=== PATIENT | male | born 1975 | race Caucasian/White ===

== ENCOUNTER 2016-12-22 14:14 | Observation (INO) | payer MEDICARE, MEDICAID ==
[~2016-12-22] VITALS: Ht 175.3 cm; Wt 101.3 kg
[~2016-12-22 14:14] MED LIST: ASPI-628 PO; CHOL200020 PO; LIP40 PO; LISI10TA2 PO; NAM10 PO; PHOS1POW MC; [UNRECOGNIZED DRUG - OTHER] PO
[2016-12-22 14:25] VITALS: BP 163/81; PULSE 90; RESP 18; O2SAT 97
--- NOTE | 2016-12-22 15:08 | ED.REPORT ---
HPI-Neurologic Deficit Date of Service Dec 22, 2016 ED Provider: Dr. Patel Pt is a 41 year old male with a hx of a right sided stroke 2014 presenting to the ED complaining of right sided numbness onset yesterday around 1700. Denies any focal weakness, although he reports that he did have weakness yesterday when the numbness began. Denies headache, slurred speech, being unable to speak , fever, chills, nausea, vomiting, SOB or wheezing. He has residual left sided weakness, left sided vision disturbances, slurred speech, and a left sided facial droop after the stroke. Pt takes Aspirin daily. Nursing Notes Stated Complaint: NUMBNESS ON WHOLE RT SIDE Chief Complaint: Neuro Symptoms/ Deficits Nursing Notes Reviewed: Yes Allergies: Coded Allergies: No Known Allergies (Verified Allergy, Unknown, 11/04/14) Scheduled Ascorbic Acid (Vitamin C) 250 Mg Tab.chew 1,000 MG PO QAM Aspirin Chew (Aspirin Chew) 81 Mg Chew 81 MG PO QAM Atorvastatin (Lipitor) 40 Mg Tablet 40 MG PO HS Cholecalciferol (Vitamin D3) (Vitamin D3) 2,000 Unit Tablet 2,000 UNIT PO QAM Citalopram (Citalopram) 40 Mg Tablet 40 MG PO QAM Cyanocobalamin (Vitamin B12) 500 Mcg Tablet 1,000 MCG PO QAM Docosahexanoic Acid (Dha) 100 Mg Capsule 100 MG PO QAM Lisinopril (Lisinopril) 10 Mg Tablet 10 MG PO HS Multivit with Calcium,Iron,Min (Multivitamins G-Vpshzin-Vmxg) 1 Each Tablet 1 EACH PO QAM General Time Seen by Provider: 15:08 Chief Complaint Numbness arm... (Right), Numbness leg... (Right) Hx Obtained From: Patient Arrived By: Walk-in Sudden in Onset?: Yes Onset Occurred: Yesterday Symptom Duration: Since onset Progression Since Onset: Gradually improving Severity: Current: No pain currently Severity: Maximum: No pain Recent Healthcare: No recent doctor visit, No recent hospitalization Similar Sx Previous: No Past Medical History Past Medical History Notes: PCP: Dr. Puckett Past Medical History Stroke x2. His mother reports there was bleeding in his brain stem the first time and the tamara area the second time. He has residual left-sided weakness and sensation/coordination loss in right hand. Hypertension Past Surgical History Tracheotomy Feeding tube Family History Noncontributory Smoking History Unknown if Ever Smoker Social History Lives with mother. Drug Use: Denies drug use Other Social History: Local resident Ambulatory Status Walker Review of Systems Constitutional: Denies: Chills, Fever Respiratory: Denies: Shortness of breath, Wheezing GI: Denies: Nausea, Vomiting Neurologic: Reports: Numbness, Denies: Focal weakness, Headache, Slurred speech, Unable to speak Complete sys rev & neg: except as marked. Physical Exam Initial Vital Signs Vital Signs (First) Date Time Temp Pulse Resp B/P Pulse Ox O2 Delivery O2 Flow Rate FiO2 12/22/16 14:25 36.2 90 18 163/81 97 12/22/16 16:15 Room Air Initial VS: Reviewed ENT: Mucous membranes moist, Conjunctiva normal, No scleral icterus Abdomen / GI: Soft, Non-tender, No guarding, No rebound, No distention Extremities: Vascular intact, Neuro intact, No swelling, No tenderness Skin: Warm, Dry, No cyanosis Psychiatric: Mood/affect normal, Behavior normal, Normal thought content General/Constitutional: Awake, Alert, No acute distress Head / Eyes: Atraumatic Respiratory / Chest: Atraumatic, Breath sounds NL, Breath sounds = bilat, No respiratory distress Cardiovascular: Heart rate NL, Regular rhythm, Heart sounds NL, No gallop, No murmurs, No rubs Neurologic: Oriented X3, Speech NL, No motor deficits, No sensory deficits, CN II - XII intact, Reflexes equal bilat, Cerebellar NL Pt has intact sensation and strength of all extremities. Clumsy past with right finger to nose. Left lateral rectus palsy. Interpretation & Diagnostics CT ANGIO HEAD AND NECK: IMPRESSION: 1. 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 Flow is seen within the remainder of the more proximal right vertebral artery up to the level of the skull base; however, the amount of flow is diminutive, which does raise the suspicion for chronic dissection. 2. Atherosclerotic changes involving the cavernous portions of the bilateral internal carotid arteries is more than expected for the patient's age. Otherwise, the vessels within the anterior circulation are patent and within normal limits. No occlusions, aneurysms, or high-grade narrowing is evident involving the anterior circulation vessels. 3. No significant atherosclerotic changes involving the cervical portions of the carotid arteries. 4. Encephalomalacia involving the posterior fossa and anterior right frontal lobe is similar to previous exams. There is no acute intracranial hemorrhage or enhancing lesion. Dictated by: Ag Martinez M.D. on 12/22/2016 at 16:01 MRI BRAIN NO CONTRAST: IMPRESSION: Overall, no interval change since 11/04/14 with multifocal encephalomalacia as above. No acute ischemia Dictated by: Adiel Christie M.D. on 12/22/2016 at 19:13 Lab Results Interpretation Result Diagram: 12/22/16 1530 12/22/16 1530 Test 12/22/16 15:30 12/22/16 17:50 12/22/16 20:23 White Blood Count 11.9th/mm3 (3.8-10.1) Red Blood Count 4.60mil/mm3 (4.40-5.80) Hemoglobin 14.7g/dL (13.8-17.2) Hematocrit 42.1% (41.0-50.0) Mean Corpuscular Volume 91.5fL (81-100) Mean Corpuscular Hemoglobin 32.0pg (27.0-35.0) Mean Corpuscular Hemoglobin Concent 34.9% (32.0-37.0) Red Cell Distribution Width 12.8% (12.3-15.4) Platelet Count 222bil/L (150-400) Neutrophils (%) (Auto) 68.1% (40-74) Lymphocytes (%) (Auto) 16.9% (14-46) Monocytes (%) (Auto) 11.0% (4-12) Eosinophils (%) (Auto) 3.5% (0-5) Basophils (%) (Auto) 0.1% (0-3) Sodium Level 138mEq/L (134-144) Potassium Level 4.4mEq/L (3.5-5.2) Chloride Level 101mEq/L (97-108) Carbon Dioxide Level 23mmol/L (18-29) Blood Urea Nitrogen 15mg/dL (6-24) Creatinine 0.65mg/dL (0.76-1.27) Estimat Glomerular Filtration Rate 143mL/min (>59) Glucose Level 89mg/dL (60-99) Calcium Level 9.1mg/dL (8.5-10.1) Total Bilirubin 0.4mg/dL (0.0-1.2) Aspartate Amino Transf (AST/SGOT) 21U/L (0-50) Alanine Aminotransferase (ALT/SGPT) 16U/L (0-44) Alkaline Phosphatase 76U/L (25-150) Troponin T < 0.010ug/L (0.0-0.011) Total Protein 7.1g/dL (6.4-8.4) Albumin 4.1g/dL (3.4-5.0) Hold Urine Received (Received) Triglycerides Level 208mg/dL (0-149) Cholesterol Level 140mg/dL (100-199) LDL Cholesterol, Calculated 63.400mg/dL (0-99) VLDL Cholesterol 41.600mg/dL HDL Cholesterol 35mg/dL (>39) Cholesterol/HDL Ratio 4.00 (0.0-4.4) ECG Interpretation Time: 15:34 Normal ECG Interpretation: Normal ECG w/ rate of... (78), Normal rate, Normal sinus rhythm CT Head Interpretation IMPRESSION: 1. No acute intracranial abnormality. No intracranial hemorrhage. 2. Chronic right frontal, pontine, and cerebellar infarcts are unchanged. Dictated by: Romy Hill M.D. on 12/22/2016 at 15:38 Study: Head CT no contrast Interpretation / Wet Read by: Interpret - Radiologist Re-Eval/Medical Decision Re-Evaluation/Progress : Time of Eval: 19:55 Patient Status: Condition improved Re-Evaluation/Progress Note: Discussed consultation with Dr. Ty and MRI results. Discussed plan for admission. Pt understands and agrees. Consultation #1: Referral / Consult Name: Annie Schafer MD Consulted With: Neurology Call Returned at: 17:29 Note: Call [facility]. Consultation #2: Consulted With: Neurology Call Returned at: 17:38 Note: Dr. Ty at [facility]. Recommends getting an MRI and admitting the pt. Consultation #3: Consulted With: Neurology Note: Dr. Ty at [facility]. Get a neck MRI and treat with aspirin. If sx progress, consider anticoagulants. Consultation #4: Referral / Consult Name: Gabe Topete MD Consulted With: Hospitalist Call Returned at: 20:15 Forestry Technician: Will see patient, Agrees with plan, Accepts admit Counseled Regarding: Diagnosis, Lab results, Need for admission Discharge & Departure Impression: Primary Impression: TIA (transient ischemic attack) Transient cerebral ischemia type: unspecified Qualified Code: G45.9 - Transient cerebral ischemic attack, unspecified Disposition: ADMITTED TO HOSPITAL Discharge Condition All VS Reviewed: Yes Condition: Improved Referrals: Elizabeth Arevalo MD (PCP) Scribe Attestation Portions of this note were transcribed by Colleen Hernandez. I, Dr. Patel personally performed the history, physical exam and medical decision-making; I reviewed and confirmed the accuracy of the information in the transcribed note. Signed by : Warren Tijerina, 12/22/2016. copies to: Elizabeth Arevalo MD, Todd P DO Dec 22, 2016 15:08 COLLEEN HERNANDEZ Dec 22, 2016 15:16
[2016-12-22 15:34] LABS: BASOPHILS % (AUTO) 0.1 % (0-3); EOSINOPHILS % (AUTO) 3.5 % (0-5); Mean Corpuscular Volume 91.5 fL (81-100); NEUTROPHILS % (AUTO) 68.1 % (40-74); Platelet Count 222 bil/L (150-400)
--- NOTE | 2016-12-22 15:40 | DRSVH ---
PROCEDURE: CT BRAIN WITHOUT CONTRAST ([id number]) INDICATIONS: rt sided numbness, hx cva TECHNIQUE: Noncontrast 4.5 mm thick angled axial sections acquired from the foramen magnum to the vertex, with c oronal reformats. COMPARISON: [facility], CT, BRAIN W/O CONTRAST, 11/04/2014, 12:10. [facility], CT, BRAIN W/O CONTRAST, 08/29/2012, 14:42. FINDINGS: Image quality: Excellent. CSF spaces: Basal cisterns are patent. No change in chronic right cerebellar and pontine infarcts. N o change in small right anteromedial frontal infarct. No extra-axial fluid collections. Ventricles a re normal in size and shape. Brain: No midline shift. No intracranial masses or hemorrhage. Manley-white matter interface is norm al. Skull and face: Calvarium and visualized facial bones are intact, without suspicious lesions. Sinuses: Visualized sinuses and mastoids are clear. IMPRESSION: 1. No acute intracranial abnormality. No intracranial hemorrhage. 2. Chronic right frontal, pontine, and cerebellar infarcts are unchanged. Dictated by: Romy Hill M.D. on 12/22/2016 at 15:38 Approved by: Romy Hill M.D. on 12/22/2016 at 15:39
[2016-12-22 15:55] LABS: TROPONIN T < 0.010 ug/L (0.0-0.011)
[2016-12-22 16:15] VITALS: BP 130/89; PULSE 76; RESP 16; O2SAT 97
--- NOTE | 2016-12-22 17:13 | DRSVH ---
PROCEDURE: CT ANGIO HEAD AND NECK (P) INDICATIONS: RIGHT SIDE NUMBNESS TECHNIQUE: Pre-contrast 4.5 mm thick sections acquired from the foramen magnum to the vertex. After the adminis tration of intravenous contrast, 1 mm thick sections acquired from the aortic arch through the [place] of [place]. Post-contrast 4.5 mm thick sections then re-acquired from the foramen magnum to the vert ex. 3-dimensional rykmgcb-jrlkhpncj-wktsuklpmd (MIP) and/or volume rendering reformats were acquired of the central intracranial vasculature and neck separately. For radiation dose reduction, the foll owing was used: automated exposure control, adjustment of mA and/or kV according to patient size. COMPARISON: [facility], MR, BRAIN W/O CONTRAST, 11/04/2014, 15:03. FINDINGS: Image quality: Diagnostic. BRAIN: Brain: There is no acute intra-axial or extra-axial hemorrhage. No extra-axial fluid collection is i dentified. There is no midline shift or mass effect. The orbits are grossly unremarkable. Extensive encephalomalacia involving the right cerebellar hemisphere is present. There is a moderate -sized area of low attenuation noted involving the right tamara, similar to previous exams. Additional ly, there is an area of encephalomalacia involving anterior right frontal lobe. No new areas of abno rmal decreased signal are evident within the brain. No suspicious enhancement or abnormal enhancemen t within the brain is evident. The ventricles and cortical sulci are age-appropriate. Bones: Calvarium and visualized facial bones are grossly intact. The imaged paranasal sinuses and m astoid air cells are clear. HEAD CT ANGIOGRAPHY: Anterior circulation: Intracranial internal carotid arteries are normal in size and flow. However, and extensive atherosclerotic calcifications are noted, which are more than expected for the patient' s age involving the cavernous segments of the bilateral internal carotid arteries. The flow within t he paired anterior cerebral arteries is normal and symmetric. The flow within the middle cerebral ar teries is normal and symmetric. The anterior communicating artery is seen. No aneurysms are seen. Posterior circulation: The right vertebral artery is completely occluded. Diminutive flow is present more inferiorly, which does not extend into the intracranial portion. The left vertebral artery als o is noted to be very small in size, but is patent and does fill the basilar artery. Flow within the posterior cerebral arteries is normal and symmetric. No aneurysms are seen. Bilateral posterior to indicating arteries are present. NECK CT ANGIOGRAPHY: Carotid system: The great vessels demonstrate a conventional anatomy as they arise from the aortic a rch. The origins of the common carotid arteries appear patent. The common carotid arteries demonstr ate normal caliber and courses. The bifurcation regions are both widely patent. The internal caroti d arteries demonstrate normal calibers and courses. Posterior circulation: The origins of the vertebral arteries both appear widely patent. Both verteb ral arteries are noted to be small in size. The distalmost aspect of the right vertebral artery is o ccluded within the intracranial portion. The more superior extracranial portions of both vertebral a rteries also demonstrate normal courses and calibers. They join to form a normal appearing basilar a rtery. Soft tissues: Visualized neck soft tissues demonstrate no suspicious abnormalities. Bones: No suspicious bony lesions. Visualized cervical spine appears normally aligned. Multifocal degenerative changes of the cervical spine are age-appropriate. IMPRESSION: 1. 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 Flow is seen within the remainder o f the more proximal right vertebral artery up to the level of the skull base; however, the amount of flow is diminutive, which does raise the suspicion for chronic dissection. 2. Atherosclerotic changes involving the cavernous portions of the bilateral internal carotid arteri es is more than expected for the patient's age. Otherwise, the vessels within the anterior circulati on are patent and within normal limits. No occlusions, aneurysms, or high-grade narrowing is evident involving the anterior circulation vessels. 3. No significant atherosclerotic changes involving the cervical portions of the carotid arteries. 4. Encephalomalacia involving the posterior fossa and anterior right frontal lobe is similar to prev ious exams. There is no acute intracranial hemorrhage or enhancing lesion. Dictated by: Ag Martinez M.D. on 12/22/2016 at 16:01 Approved by: Ag Martinez M.D. on 12/22/2016 at 16:12
[2016-12-22 18:39] VITALS: BP 143/89; PULSE 76; RESP 16; O2SAT 97
--- NOTE | 2016-12-22 19:23 | DRSVH ---
PROCEDURE: MRI BRAIN WITHOUT CONTRAST ([id number]) INDICATIONS: Right sided deficits,history of hemmorage TECHNIQUE: Noncontrast axial T1 spin echo, axial T2 fast spin echo, sagittal and axial FLAIR, coronal T2 fast sp in echo, axial gradient echo, axial diffusion and ADC through the brain. COMPARISON: [facility], MR, BRAIN W/O CONTRAST, 11/04/2014, 15:03. FINDINGS: Image quality: Excellent. CSF Spaces: Basal cisterns are patent. No extra-axial fluid collections. Ventricles are normal in size and shape. Brain: No intracranial masses or hemorrhage. Chronic sequela of posterior fossa infarct and right ce rebellar hemisphere encephalomalacia appears unchanged. There is also chronic right frontal encephalo malacia Manley/white matter interface is normal. Brainstem appears normal. Diffusion-weighted images demonstrate no acute ischemic insult. There is artifactual increased signal on DWI image 71 series 2 in the right frontal lobe. No chronic ischemic insults. Normal intravascular flow voids are present. Skull and face: Calvarium has normal marrow signal. Orbits appear normal. Sinuses: Sinuses and mastoids are clear. IMPRESSION: Overall, no interval change since 11/04/14 with multifocal encephalomalacia as above. No acute ischemi a Dictated by: Adiel Christie M.D. on 12/22/2016 at 19:13 Approved by: Adiel Christie M.D. on 12/22/2016 at 19:22
[2016-12-22] MEDS ORDERED: Alum-Mag Hydrox-Simeth 30 mL Suspension PO PRN (20:25)
[2016-12-22] MEDS ORDERED: Ondansetron 2 mg/mL 2 mL Inj IVPUSH PRN (20:25)
[2016-12-22] MEDS ORDERED: Polyethylene Glycol (PEG) 17 Gm Powder PO PRN (20:25)
[2016-12-22] MEDS ORDERED: Labetalol 5 mg/mL 20 mL Inj IVPUSH PRN (20:25)
[2016-12-22] MEDS ORDERED: CYAN500 PO (21:02)
[2016-12-22] MEDS ORDERED: DOCO100C PO (21:02)
[2016-12-22] MEDS ORDERED: CITA40TA13 PO (21:02)
[2016-12-22] MEDS ORDERED: MULT-528 PO (21:02)
[2016-12-22] MEDS ORDERED: ASCO250T7 PO (21:02)
[2016-12-22] MEDS ORDERED: ASPI81TA3 PO (21:03)
[2016-12-22] MEDS ORDERED: CHOL200025 PO (21:03)
[2016-12-22] MEDS ORDERED: LISI10TA PO (21:03)
[2016-12-22 21:05] VITALS: BP 123/76; PULSE 75; RESP 14; O2SAT 96
--- NOTE | 2016-12-22 21:21 | PCM.HPMED ---
Subjective Date of Service Dec 22, 2016 Primary Provider: Admitting Physician: Primary Care Physician: Elizabeth Arevalo MD Attending Physician: Admit Status: From the Emergency Department, Remote Telemetry Chief Complaint: acute onset right sided weakness of upper and lower extremity with associated fatigue History of Present Illness: Mr. 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 He was emergently transferred to [facility] for further evaluation. Prompt consultation was made with [facility], Dr. Ty, who recommended imaging and treatment with aspirin, with anticoagulation considered if symptoms progress . Dr. Scahfer of [facility] neurology was also contacted, who agreed with recommendations provided by [facility] and decision for admission and consultation. Initial imaging included CT brain without contrast which did not reveal any acute intracranial abnormalities or hemorrhage and stable chronic right frontal, pontine, and cerebellar infarcts; CT angiogram of head and neck revealed occluded intracranial portion of the right vertebral artery which may be indicative of chronic dissection, anterior circulation vessels did not yield any evidence of occlusions, aneurysms, or high-grade narrowing, there were no significant atherosclerotic changes of the cervical portions of the carotids, and encephalomalacia of the posterior fossa and right frontal lobe is noted to be similar compared to previous examinations without any evidence of acute intracranial hemorrhage or enhancing lesions; MRI brain without contrast did not reveal any interval changes since 2014 with multifocal encephalomalacia and no evidence of extracranial masses or hemorrhages, and it was again noted that the chronic sequela posterior fossa infarct right cerebellar hemisphere encephalomalacia appeared unchanged. Patient was admitted for further evaluation and treatment of suspected CVA, with a complex history of hemorrhagic conversion, with neurology to consult. - Hospital day 1 Patient states that symptoms began evening prior to admission, approximately 5 PM 12/21/2016, with symptoms reported as right sided upper and lower extremity weakness and decreased sensitivity, with associated fatigue. He also notes some recent episodes of loose stools, but denies any ongoing bowel symptoms or blood noticed. He does not note any increase of symptoms for his residual effects from his previous CVA, and denies any increased blurred vision, nausea, vomiting, abdominal pain, changes of the left side, slurred speech above baseline, or gait imbalance poorer than baseline. He was seen by urgent care prior to transfer to the emergency department. Patient notes that the findings of his right upper and lower extremity are unusual, and prior to yesterday, he was not experiencing any numbness, decreased sensitivity, or weakness. He does state compliance with physical therapy and home exercise regimens, and questions whether his symptoms are secondary to a peripheral neurological deficit rather than central. Patient denies any sequelae of seizure activity since episodes of CVA hemorrhagic conversion In the ED, stat imaging was obtained as noted above, in addition initial vitals included T 36.7, p63, respiratory 22, blood pressure 162/79, 96% on room air; labs included white count 11.9 with no shift, hemoglobin 14.7, platelets 222, electrolytes within range; LFTs within range, troponin negative. UA ordered. Patient transported to medical floor in stable condition Review of Systems: Complete review of systems obtained, pertinent positives and negatives as noted in history of present illness Allergies Coded Allergies: No Known Allergies (Verified Allergy, Unknown, 11/04/14) Home Medications Obtained from outpatient documentation in urgent care dated 12/22/2016: Ssuhil Le [id number] 1975 12/22/2016 01:10 PM 04/27 Medication Name Directions aspirin 81 mg tablet,delayed release take 1 tablet by oral route every day CELEXA 40MG TABLETS TABLET TAKE 1 TABLET BY ORAL ROUTE EVERY DAY FOR MOOD Fish Oil 1,000 mg capsule take 1 capsule orally daily. Lipitor 20 mg tablet take 1 tablet by oral route every day LIPITOR 40MG TABLETS TABLET TAKE 1 TABLET BY ORAL ROUTE EVERY DAY FOR HIGH CHOLESTEROL. lovastatin 20 mg tablet take 1 tablet by oral route every day with the evening meal Marijuana use for medical reasons multivitamin tablet take 1 tablet by oral route every day with food Vitamin B Complex capsule take 1 capsule orally daily. 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, August 2012 CVA sequela: Dysarthria, left-sided weakness, diplopia, nystagmus REEMA on CPAP No known coagulation disorders; records indicate panel were completed in 2013, but results not easily accessible Surgical History LAP-BAND placed in [place] Previous intubation 2012 Cerebral angiogram with IA thrombolysis, I see stenting or vertebral artery dissection and emergent transluminal angioplasty PEG tube placement Right knee meniscal tearing with repair Family History Reports of multiple members with diabetes, lung cancer; denies any family history of coagulation disorders or recurrent strokes Social History Occupation: disabled Hx Alcohol Use: No Hx Substance Use: No Hx Tobacco Use: No Smoking Status: Never Smoker Living Arrangement: with Family (mother, local) Exam Vital Signs Vital Sign - Last Date Time Temp Pulse Resp B/P Pulse Ox O2 Delivery O2 Flow Rate FiO2 12/22/16 21:05 75 14 123/76 96 Room Air 12/22/16 14:25 36.2 Exam General: Alert and oriented 3; pleasant gentleman resting supine in bed in no acute distress HEENT: Atraumatic, normocephalic, sclera anicteric, membranes moist Neck: Full range of motion without pain Cardiac: Regular rate and rhythm at time of examination without any appreciable murmurs Respiratory: Equal and adequate airflow all puente without any wheeze or rhonchi ; no use of accessory muscles Chest: Atraumatic without any reproducible pain with palpation Abdomen: Soft, nontender, nondistended; nodularity appreciated LUQ without superficial edema, or erythma (likely scar tissue secondary to h/o lap band and PEG) Extremities: No edema appreciated Skin: Warm and dry MSK: 4/5 strength 4/4 extremities at major joints of the shoulder, hip, ankle, elbow Neuro: 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 He was emergently transferred to [facility] for further evaluation. Prompt consultation was made with [facility]y, Dr. Ty, who recommended imaging and treatment with aspirin, with anticoagulation considered if symptoms progress . Dr. Schafer of [facility] neurology was also contacted, who agreed with recommendations provided by [facility] and decision for admission and consultation. Initial imaging included CT brain without contrast which did not reveal any acute intracranial abnormalities or hemorrhage and stable chronic right frontal, pontine, and cerebellar infarcts; CT angiogram of head and neck revealed occluded intracranial portion of the right vertebral artery which may be indicative of chronic dissection, anterior circulation vessels did not yield any evidence of occlusions, aneurysms, or high-grade narrowing, there were no significant atherosclerotic changes of the cervical portions of the carotids, and encephalomalacia of the posterior fossa and right frontal lobe is noted to be similar compared to previous examinations without any evidence of acute intracranial hemorrhage or enhancing lesions; MRI brain without contrast did not reveal any interval changes since 2014 with multifocal encephalomalacia and no evidence of extracranial masses or hemorrhages, and it was again noted that the chronic sequela posterior fossa infarct right cerebellar hemisphere encephalomalacia appeared unchanged. Patient was admitted for further evaluation and treatment of suspected CVA, with a complex history of hemorrhagic conversion, with neurology to consult. - Hospital day 1 Suspected CVA with right sided upper and lower extremity weakness, acute, present on admission, ongoing - Sx onset > - Stat imaging on admit: - CT brain, CTA head/neck, brain MRI - No acute changes noted; no noted evidence of bone misalignment, chronic age -appropriate changes noted - Sx already present approx 24 hours at time of scans - Swallow study at bedside, with ongoing speech therapy - PT/OT evaluation and ongoing sessions - Echo with bubble study - Neuro checks q4h + HOB 30deg - Lipid panel: Total cholesterol 140, LDL 63, HDL 35, triglycerides 208 - Continue to investigate for other possible etiologies - No recent viral illnesses noted or reported to suspect other etiologies, such as GBS - Repeat coag studies and thyroid, records from [facility] not easily accessible - Neurology consultation order placed; Dr. Schafer was contacted by ED team - We will continue home medications at this time once verified and reconciliation was completed: ASA, statin History of CVA with hemorrhagic conversion, chronic, presumed stable - On admit: Plt 222 - H/o basilar artery thrombosis and vertebral artery dissection, with hemorrhagic conversion-August 2012 - [facility] records are able to be accessed within [employer] - Complete evaluation at that time, including homocysteine, TSH; results not easiy accessible, will repeat - Dr. Maharaj following yearly - Continue home meds when med rec completed and meds verified as noted above - Restart hypertensive meds at 24h post onset Leukocytosis, likely acute, present on admission, monitor - On admit: WBC 11.9 - Likely stress reaction - No s/sx infection at this time; consider additional work up and evaluation - Pt did note one episode of loose stools, but denied ongoing sx REEMA on CPAP, chronic, presumed stable - Have pt bring in machine - Monitor History of LLE DVT, presumed stable - No additional anticoagulation at this time at the recommendations of [facility], unless neuro sx progress - SCDs only at this time Hypertension, chronic, presumed stable - Patient denied any history of hypertension at time of admission, although records indicate previous diagnosis - Monitor PRN fever, bowel, nausea, pain DVT: SCDs only at this time Diet: Heart healthy after completion of swallow study, with ongoing speech therapy GI: H2B IVF: NS100 Code: FULL CODE Patient status: Patient is admitted under inpatient status with expected length of stay greater than 2 midnights due to severity of presenting symptoms, risk of adverse event, and complexity of treatment plan. Pain Evaluation: Adequate Pain Control GI Prophylaxis: H2 antonella VTE Prophylaxis: SCDs Resuscitation Status: CPR: Attempt Resuscitation Attending Statement The patient was seen and examined together with Dr. John on 12/22 and I agree with the history, exam and plan as outlined in the note above. Camille John DO Dec 22, 2016 21:20 Gabe Topete MD Dec 23, 2016 00:38
[2016-12-22 21:32] VITALS: BP 162/79; PULSE 63; RESP 22; O2SAT 96
[2016-12-23] VITALS (7 sets, daily range): BP systolic 119–176; BP diastolic 45–83; PULSE 55–75; RESP 18–20; O2SAT 96–98
[2016-12-23] MEDS: 0.9% Sodium Chloride 1,000 ML IV SCH ×4 (00:39→22:09)
[2016-12-23 05:52] LABS: BASOPHILS % (AUTO) 0.1 % (0-3); EOSINOPHILS % (AUTO) 6.1 % (0-5); MONOCYTES % (AUTO) 14.8 % (4-12); Mean Corpuscular Hemoglobin 31.6 pg (27.0-35.0); Mean Corpuscular Volume 91.8 fL (81-100); NEUTROPHILS % (AUTO) 49.3 % (40-74); Platelet Count 189 bil/L (150-400)
[2016-12-23 06:20] LABS: ERYTHROCYTE SEDIMENTATION RATE 4 mm/hr (0-15)
[2016-12-23 09:29] LABS: APPEARANCE,URINE CLEAR (CLEAR,HAZY); COLOR,URINE YELLOW (YELLOW); OCCULT BLOOD,URINE NEGATIVE (NEGATIVE); UROBILINOGEN,URINE NORMAL (NORMAL)
--- NOTE | 2016-12-23 12:59 | DRSVH ---
[facility] [address] [place] [address] Echocardiogram Report Name: VERONICA MUNSON Date: 12/23/2016 Height: 69 in Hospital Exam Location: [facility] Weight: 223 lb Gender: Male BSA: 2.2 m2 : 1975 Age: 41 yrs BP: 129/74 mmHg Reason For Study: BUBBLE STUDY Ordering Physician: Jamison HospitalistPerformed By: Matthew Sykes Referring Physician: RICKEY HUFF Interpretation Summary Both atria are normal in size. Injection of contrast documented an interatrial right to left shunt that is probably small in size. Color Doppler on the other hand, did not show any evidence of a left to right shunt. Left ventricular wall thickness is borderline increased. The ejection fraction is estimated to be 50-55%. There are no focal wall motion abnormalities. The right ventricle is normal in size, thickness and function. There is no significant valvular heart disease. The aortic root is normal size. Procedure: A two-dimensional transthoracic echocardiogram with color flow and Doppler was performed. The study quality was technically good. There is no prior echocardiogram noted for this patient. A saline contrast injection was performed to assess for cardiac shunting. The patient was in normal sinus rhythm during the exam. Left Ventricle: Left ventricular wall thickness is borderline increased. The ejection fraction is estimated to be 50-55%. There are no focal wall motion abnormalities. Right Ventricle: The right ventricle is normal in size, thickness and function. Atria: Both atria are normal in size. Injection of contrast documented an interatrial shunt. Mitral Valve: The mitral valve leaflets appear borderline thickened, but open well. There is trace mitral regurgitation. Aortic Valve: The aortic valve is normal in structure and function. No aortic regurgitation is present. Tricuspid Valve: The tricuspid valve is normal. There is mild tricuspid regurgitation. Pulmonic Valve: The pulmonic valve is not well seen, but is grossly normal. There is trace pulmonic regurgitation. There is no significant valvular heart disease. Great Vessels: The aortic root is normal size. The dimensions of the ascending aorta are normal. The pulmonary artery is normal size. The IVC is of normal diameter and collapses greater than 50% with a sniff. This suggests a low right atrial pressure of 3 mm Hg. Pericardium/ Pleura There is no pericardial effusion. There is no pleural effusion. MMode/2D Measurements & Calculations LVIDd: 5.2 cm RA long axis LVOT diam LVIDs: 3.7 cm LA A2 area: 17.8 cm FS: 28.2 % LA A4 area: 21.2 cm RA area AoV Opening EPSS: 0.31 cm LA length (vol): 5.1 cm IVSd: 0.96 cm LA vol: 62.6 ml : 16.6 cm Ao root diam LVPWd: 1.1 cm LA vol index RA vol : 46.2 ml asc Aorta RA Diam: 2.9 cm IVC diam: 1.9 cm : 21.3 mm2 LV crow. diameter/BSA LV sys. diameter/BSA RVD1 (basal) TAPSE: 2.0 cm (cm/m^2): 2.4 (cm/m^2): 1.7 Doppler Measurements & Calculations Ao V2 max MV E max marcin MV E/A: 2.2 PA V2 max : 106.5 cm/sec : 100.9 cm/sec Med Peak E' Marcin : 88.3 cm/sec Ao max P.5 mmHg MV A max marcin PA mean PG Ao mean P.6 mmHg : 46.7 cm/sec E/E' med: 9.8 : 1.8 mmHg LVOT Max Marcin Lat Peak E' Marcin : 99.2 cm/sec LILI(I,D): 4.8 cm E/E' lat: 7.7 sev ratio: 0.94 E/e' average: 8.8 MV dec time: 0.16 sec Ao V2 mean LV V1 max PG PA V2 mean : 76.5 cm/sec : 63.7 cm/sec Ao V2 VTI: 23.5 cmLV V1 VTI: 22.1 cm PA pr(Accel) : 35.4 mmHg LILI(V,D): 4.7 cm2 LILI indexed to BSA (cm^2/m^2): 2.2 Reading Physician:CAPRICE
--- NOTE | 2016-12-23 14:39 | PCM.PNMED ---
Subjective Date of Service Dec 23, 2016 Subjective Patient sitting up in chair. Still is complaining of right sided weakness and numbness. Exam Vital Signs Vital Sign - Last Date Time Temp Pulse Resp B/P Pulse Ox O2 Delivery O2 Flow Rate FiO2 12/23/16 13:27 36.4 75 20 119/78 98 Room Air Intake and Output 12/22/16 12/22/16 12/23/16 Cumulative From/Thru 15:00 23:00 07:00 12/22/16 14:25 - 12/23/16 05:59 Intake Total 527 ml 527 ml Output Total 1000 ml 1000 ml Balance -473 ml -473 ml Intake Oral 0 ml 0 ml IV Total 527 ml 527 ml Output Urine Total 1000 ml 1000 ml Exam Constitutional: Young male in no acute distress Head: Normocephalic atraumatic Mouth: No lesions noted Neck: No adenopathy Chest: Clear to auscultation Cor: Regular rate and rhythm S1-S2 without murmur Abdomen: Soft nontender bowel sounds present Extremities: No pedal edema Neuro he is alert and oriented 3, does have dysarthria, vertigo 5 bilateral extremity strength not left-sided nystagmus noted with left eye palsy. -Psych: Appropriate mood and affect Lab and Diagnostics Laboratory Tests 72 Hours Test 12/22/16 00:35 12/22/16 15:30 12/22/16 17:50 12/22/16 20:23 White Blood Count 11.9th/mm3 (3.8-10.1) Red Blood Count 4.60mil/mm3 (4.40-5.80) Hemoglobin 14.7g/dL (13.8-17.2) Hematocrit 42.1% (41.0-50.0) Mean Corpuscular Volume 91.5fL (81-100) Mean Corpuscular Hemoglobin 32.0pg (27.0-35.0) Mean Corpuscular Hemoglobin Concent 34.9% (32.0-37.0) Red Cell Distribution Width 12.8% (12.3-15.4) Platelet Count 222bil/L (150-400) Neutrophils (%) (Auto) 68.1% (40-74) Lymphocytes (%) (Auto) 16.9% (14-46) Monocytes (%) (Auto) 11.0% (4-12) Eosinophils (%) (Auto) 3.5% (0-5) Basophils (%) (Auto) 0.1% (0-3) Sodium Level 138mEq/L (134-144) Potassium Level 4.4mEq/L (3.5-5.2) Chloride Level 101mEq/L (97-108) Carbon Dioxide Level 23mmol/L (18-29) Blood Urea Nitrogen 15mg/dL (6-24) Creatinine 0.65mg/dL (0.76-1.27) Estimat Glomerular Filtration Rate 143mL/min (>59) Glucose Level 89mg/dL (60-99) Calcium Level 9.1mg/dL (8.5-10.1) Total Bilirubin 0.4mg/dL (0.0-1.2) Aspartate Amino Transf (AST/SGOT) 21U/L (0-50) Alanine Aminotransferase (ALT/SGPT) 16U/L (0-44) Alkaline Phosphatase 76U/L (25-150) Troponin T < 0.010ug/L (0.0-0.011) Total Protein 7.1g/dL (6.4-8.4) Albumin 4.1g/dL (3.4-5.0) Urine Color Yellow (YELLOW) Urine Appearance Clear (CLEAR,HAZY) Urine pH 7.0 (5.0-8.0) Urine Specific [place] 1.010 (1.003-1.035) Urine Protein Negativemg/dL (NEG,TRACE) Urine Glucose (UA) Negativemg/dL (NEGATIVE) Urine Ketones Negativemg/dL (NEGATIVE) Urine Occult Blood Negative (NEGATIVE) Urine Nitrite Negative (NEGATIVE) Urine Bilirubin Negative (NEGATIVE) Urine Urobilinogen Normalmg/dL (NORMAL) Urine Leukocyte Esterase Negative (NEGATIVE) Urine RBC 0-2/hpf (0-2) Urine WBC 0-5/hpf (0-5) Urine Epithelial Cells None/hpf (NONE-MOD) Urine Crystals None seen (NONE SEEN) Urine Bacteria None/hpf (NONE-FEW) Urine Hyaline Casts None/lpf (NONE) Urine Granular Casts None seen (NONE SEEN) Urine Waxy Casts None seen (NONE SEEN) Urine Red Blood Cell Casts None seen (NONE SEEN) Urine White Blood Cell Casts None seen (NONE SEEN) Urine Mucus None seen (None Seen) Urine Trichomonas None seen (NONE SEEN) Urine Yeast None (NONE SEEN) Urinalysis Comment None Urine Culture Reflexed Not indicated Hold Urine Received (Received) Triglycerides Level 208mg/dL (0-149) Cholesterol Level 140mg/dL (100-199) LDL Cholesterol, Calculated 63.400mg/dL (0-99) VLDL Cholesterol 41.600mg/dL HDL Cholesterol 35mg/dL (>39) Cholesterol/HDL Ratio 4.00 (0.0-4.4) Test 12/23/16 05:20 White Blood Count 6.7th/mm3 (3.8-10.1) Red Blood Count 4.40mil/mm3 (4.40-5.80) Hemoglobin 13.9g/dL (13.8-17.2) Hematocrit 40.4% (41.0-50.0) Mean Corpuscular Volume 91.8fL (81-100) Mean Corpuscular Hemoglobin 31.6pg (27.0-35.0) Mean Corpuscular Hemoglobin Concent 34.4% (32.0-37.0) Red Cell Distribution Width 12.9% (12.3-15.4) Platelet Count 189bil/L (150-400) Neutrophils (%) (Auto) 49.3% (40-74) Lymphocytes (%) (Auto) 29.4% (14-46) Monocytes (%) (Auto) 14.8% (4-12) Eosinophils (%) (Auto) 6.1% (0-5) Basophils (%) (Auto) 0.1% (0-3) Erythrocyte Sedimentation Rate 4mm/hr (0-15) Prothrombin Time 10.7sec (8.1-12.5) Prothromb Time International Ratio 1.00ratio Activated Partial Thromboplast Time 26.8sec (22.8-33.0) Sodium Level 140mEq/L (134-144) Potassium Level 4.4mEq/L (3.5-5.2) Chloride Level 104mEq/L (97-108) Carbon Dioxide Level 23mmol/L (18-29) Blood Urea Nitrogen 13mg/dL (6-24) Creatinine 0.63mg/dL (0.76-1.27) Estimat Glomerular Filtration Rate 148mL/min (>59) Glucose Level 94mg/dL (60-99) Calcium Level 8.9mg/dL (8.5-10.1) Thyroid Stimulating Hormone (TSH) 2.810uIU/mL (0.450-4.500) Free Thyroxine 0.94ng/dL (0.82-1.77) Result Diagram: 12/23/16 0520 12/23/16 0520 X-Rays, CTs and MRIs PROCEDURE: MRI BRAIN WITHOUT CONTRAST ([id number]) INDICATIONS: Right sided deficits,history of [place]mm[place] TECHNIQUE: Noncontrast axial T1 spin echo, axial T2 fast spin echo, sagittal and axial FLAIR, coronal T2 fast spin echo, axial gradient echo, axial diffusion and ADC through the brain. COMPARISON: [facility], MR, BRAIN W/O CONTRAST, 11/04/2014, 15:03. FINDINGS: Image quality: Excellent. CSF Spaces: Basal cisterns are patent. No extra-axial fluid collections. Ventricles are normal in size and shape. Brain: No intracranial masses or hemorrhage. Chronic sequela of posterior fossa infarct and right cerebellar hemisphere encephalomalacia appears unchanged. There is also chronic right frontal encephalomalacia Man[place]/white matter interface is normal. Brainstem appears normal. Diffusion-weighted images demonstrate no acute ischemic insult. There is artifactual increased signal on DWI image 71 series 2 in the right frontal lobe. No chronic ischemic insults. Normal intravascular flow voids are present. Skull and face: Calvarium has normal marrow signal. Orbits appear normal. Sinuses: Sinuses and mastoids are clear. IMPRESSION: Overall, no interval change since 11/04/14 with multifocal encephalomalacia as above. No acute ischemia Dictated by: Adiel Christie M.D. on 12/22/2016 at 19:13 Approved by: Adiel Christie M.D. on 12/22/2016 at 19:22 PROCEDURE: CT ANGIO HEAD AND NECK (P) INDICATIONS: RIGHT SIDE NUMBNESS TECHNIQUE: Pre-contrast 4.5 mm thick sections acquired from the foramen magnum to the vertex. After the administration of intravenous contrast, 1 mm thick sections acquired from the aortic arch through the [place] of [place]. Post-contrast 4.5 mm thick sections then re-acquired from the foramen magnum to the vertex. 3- dimensional fixskqs-vsfsowwza-lnclctznom (MIP) and/or volume rendering reformats were acquired of the central intracranial vasculature and neck separately. For radiation dose reduction, the following was used: automated exposure control, adjustment of mA and/or kV according to patient size. COMPARISON: [facility], MR, BRAIN W/O CONTRAST, 11/04/2014, 15:03. FINDINGS: Image quality: Diagnostic. BRAIN: Brain: There is no acute intra-axial or extra-axial hemorrhage. No extra-axial fluid collection is identified. There is no midline shift or mass effect. The orbits are grossly unremarkable. Extensive encephalomalacia involving the right cerebellar hemisphere is present. There is a moderate-sized area of low attenuation noted involving the right tamara, similar to previous exams. Additionally, there is an area of encephalomalacia involving anterior right frontal lobe. No new areas of abnormal decreased signal are evident within the brain. No suspicious enhancement or abnormal enhancement within the brain is evident. The ventricles and cortical sulci are age-appropriate. Bones: Calvarium and visualized facial bones are grossly intact. The imaged paranasal sinuses and mastoid air cells are clear. HEAD CT ANGIOGRAPHY: Anterior circulation: Intracranial internal carotid arteries are normal in size and flow. However, and extensive atherosclerotic calcifications are noted , which are more than expected for the patient's age involving the cavernous segments of the bilateral internal carotid arteries. The flow within the paired anterior cerebral arteries is normal and symmetric. The flow within the middle cerebral arteries is normal and symmetric. The anterior communicating artery is seen. No aneurysms are seen. Posterior circulation: The right vertebral artery is completely occluded. Diminutive flow is present more inferiorly, which does not extend into the intracranial portion. The left vertebral artery also is noted to be very small in size, but is patent and does fill the basilar artery. Flow within the posterior cerebral arteries is normal and symmetric. No aneurysms are seen. Bilateral posterior to indicating arteries are present. NECK CT ANGIOGRAPHY: Carotid system: The great vessels demonstrate a conventional anatomy as they arise from the aortic arch. The origins of the common carotid arteries appear patent. The common carotid arteries demonstrate normal caliber and courses. The bifurcation regions are both widely patent. The internal carotid arteries demonstrate normal calibers and courses. Posterior circulation: The origins of the vertebral arteries both appear widely patent. Both vertebral arteries are noted to be small in size. The distalmost aspect of the right vertebral artery is occluded within the intracranial portion. The more superior extracranial portions of both vertebral arteries also demonstrate normal courses and calibers. They join to form a normal appearing basilar artery. Soft tissues: Visualized neck soft tissues demonstrate no suspicious abnormalities. Bones: No suspicious bony lesions. Visualized cervical spine appears normally aligned. Multifocal degenerative changes of the cervical spine are age- appropriate. IMPRESSION: 1. 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 Flow is seen within the remainder of the more proximal right vertebral artery up to the level of the skull base; however, the amount of flow is diminutive, which does raise the suspicion for chronic dissection. 2. Atherosclerotic changes involving the cavernous portions of the bilateral internal carotid arteries is more than expected for the patient's age. Otherwise, the vessels within the anterior circulation are patent and within normal limits. No occlusions, aneurysms, or high-grade narrowing is evident involving the anterior circulation vessels. 3. No significant atherosclerotic changes involving the cervical portions of the carotid arteries. 4. Encephalomalacia involving the posterior fossa and anterior right frontal lobe is similar to previous exams. There is no acute intracranial hemorrhage or enhancing lesion. Dictated by: Ag Martinez M.D. on 12/22/2016 at 16:01 Approved by: Ag Martinez M.D. on 12/22/2016 at 16:12 PROCEDURE: CT BRAIN WITHOUT CONTRAST ([id number]) INDICATIONS: rt sided numbness, hx cva TECHNIQUE: Noncontrast 4.5 mm thick angled axial sections acquired from the foramen magnum to the vertex, with coronal reformats. COMPARISON: [facility], CT, BRAIN W/O CONTRAST, 11/04/2014, 12:10. [facility], CT, BRAIN W/O CONTRAST, 08/29/2012, 14:42. FINDINGS: Image quality: Excellent. CSF spaces: Basal cisterns are patent. No change in chronic right cerebellar and pontine infarcts. No change in small right anteromedial frontal infarct. No extra-axial fluid collections. Ventricles are normal in size and shape. Brain: No midline shift. No intracranial masses or hemorrhage. Man[place]-white matter interface is normal. Skull and face: Calvarium and visualized facial bones are intact, without suspicious lesions. Sinuses: Visualized sinuses and mastoids are clear. IMPRESSION: 1. No acute intracranial abnormality. No intracranial hemorrhage. 2. Chronic right frontal, pontine, and cerebellar infarcts are unchanged. Assessment & Plan Mr. 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 He was emergently transferred to [facility] for further evaluation. Prompt consultation was made with [facility], Dr. Ty, who recommended imaging and treatment with aspirin, with anticoagulation considered if symptoms progress . Dr. Schafer of [facility] neurology was also contacted, who agreed with recommendations provided by [facility] and decision for admission and consultation. Initial imaging included CT brain without contrast which did not reveal any acute intracranial abnormalities or hemorrhage and stable chronic right frontal, pontine, and cerebellar infarcts; CT angiogram of head and neck revealed occluded intracranial portion of the right vertebral artery which may be indicative of chronic dissection, anterior circulation vessels did not yield any evidence of occlusions, aneurysms, or high-grade narrowing, there were no significant atherosclerotic changes of the cervical portions of the carotids, and encephalomalacia of the posterior fossa and right frontal lobe is noted to be similar compared to previous examinations without any evidence of acute intracranial hemorrhage or enhancing lesions; MRI brain without contrast did not reveal any interval changes since 2014 with multifocal encephalomalacia and no evidence of extracranial masses or hemorrhages, and it was again noted that the chronic sequela posterior fossa infarct right cerebellar hemisphere encephalomalacia appeared unchanged. Patient was admitted for further evaluation and treatment of suspected CVA, with a complex history of hemorrhagic conversion, with neurology to consult. - Hospital day 2 Suspected CVA with right sided upper and lower extremity weakness, acute, present on admission, ongoing - Sx onset > - Stat imaging on admit: - CT brain, CTA head/neck, brain MRI - No acute changes noted; no noted evidence of bone misalignment, chronic age -appropriate changes noted - Sx already present approx 24 hours at time of scans - Swallow study at bedside, with ongoing speech therapy - PT/OT evaluation and ongoing sessions - Echo with bubble study - Neuro checks q4h + HOB 30deg - Lipid panel: Total cholesterol 140, LDL 63, HDL 35, triglycerides 208 - Continue to investigate for other possible etiologies - No recent viral illnesses noted or reported to suspect other etiologies, such as GBS - Repeat coag studies and thyroid, records from [facility] not easily accessible - Neurology consultation order placed; Dr. Schafer was contacted by ED team and awaiting consultation - We will continue home medications at this time once verified and reconciliation was completed: ASA, statin -No acute findings were seen on initial evaluation with imaging studies. -We will proceed with checking MRI of C-spine as this may possibly show some abnormalities as etiology of right sided weakness and numbness. 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 Maharaj following yearly - Continue home meds when med rec completed and meds verified as noted above - Restart hypertensive meds at 24h post onset Leukocytosis, likely acute, present on admission, monitor - On admit: WBC 11.9 - Likely stress reaction - No s/sx infection at this time; consider additional work up and evaluation - Pt did note one episode of loose stools, but denied ongoing sx REEMA on CPAP, chronic, presumed stable - Have pt bring in machine - Monitor History of LLE DVT, presumed stable - No additional anticoagulation at this time at the recommendations of [facility], unless neuro sx progress - SCDs only at this time Hypertension, chronic, presumed stable - Patient denied any history of hypertension at time of admission, although records indicate previous diagnosis - Monitor PRN fever, bowel, nausea, pain DVT: SCDs only at this time Diet: Heart healthy after completion of swallow study, with ongoing speech therapy GI: H2B IVF: NS100 Code: FULL CODE Patient status: Patient is admitted under inpatient status with expected length of stay greater than 2 midnights due to severity of presenting symptoms, risk of adverse event, and complexity of treatment plan. GI Prophylaxis: H2 antonella VTE Prophylaxis: SCDs VTE Mechanical Devices: Venous Foot Pump Resuscitation Status: CPR: Attempt Resuscitation Time spent 30 minutes Margarita Saavedra MD Dec 23, 2016 14:39
--- NOTE | 2016-12-23 14:56 | DRSVH ---
PROCEDURE: MRI CERVICAL SPINE WITHOUT CONTRAST ([id number]) INDICATIONS: right sided numbness TECHNIQUE: Noncontrast sagittal T1 spin echo and T2 fast spin echo, sagittal STIR, foraminal oblique sagittal T2 fast spin echo, and axial gradient echo or T2 fast spin echo through the cervical spine. COMPARISON: None. FINDINGS: Image quality: Excellent. Alignment and Curvature: There is normal bony alignment. Bone Marrow: Increased T2 signal in the anterior C4 and C5 likely reactive marrow edema. Spinal Cord: Visualized spinal cord has normal size and signal. No cerebellar tonsillar herniation. Paraspinous Soft Tissues: No paravertebral masses. Prevertebral soft tissues are normal in thicknes s. C2-C3: Normal appearance. C3-C4: Mild disc desiccation with mild posterior disc bulge. Mild uncovertebral hypertrophy bilateral ly. The central canal is patent. Mild bilateral foraminal stenosis. C4-C5: Mild disc desiccation with mild posterior disc bulge. Mild uncovertebral hypertrophy bilatera lly. The central canal is patent. Mild bilateral foraminal stenosis. C5-C6: Preserved disc height and mild disc desiccation. There is broad posterior disc bulge. Mild u ncovertebral hypertrophy. The central canal is mild to moderately narrowed. Mild bilateral foraminal stenosis. C6-C7: Normal appearance. C7-T1: Normal appearance. IMPRESSION: 1. Multilevel degenerative disc disease in cervical spine as described. 2. Mild to moderate central canal stenosis at C5-C6. 3. Mild foraminal stenosis at several levels as described. Dictated by: Sarah Mares M.D. on 12/23/2016 at 14:32 Approved by: Sarah Mares M.D. on 12/23/2016 at 14:54
[2016-12-24 00:26] VITALS: BP 139/87; PULSE 87; RESP 18; O2SAT 93
[2016-12-24 00:46] VITALS: BP 140/82; PULSE 82; RESP 18; O2SAT 96
[2016-12-24 02:09] LABS: Vitamin D, 25-Hydroxy 37.7 ng/mL (30.0-100.0)
--- NOTE | 2016-12-24 02:24 | CONS ---
[address] [address] CONSULTATION REPORT PATIENT: VERONICA MUNSON : 1975 MR#: [id number] ADMIT: 12/22/2016 JOB ID: [id number] NEUROLOGY CONSULTATION: DATE OF SERVICE: 12/23/2016 REQUESTING PROVIDER: Margarita Saavedra MD CHIEF COMPLAINT: Transient episode of right upper and right lower extremity numbness and weakness. 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 This is complicated by the development of a right pontine hemorrhage while on a heparin drip. He also has a history of a DVT. He also has a history of hypertension and hyperlipidemia. He does have a history of morbid obesity, status post a Lap-Band surgery in 2007. It appears that his initial symptom was dizziness, hearing a whooshing sound and significant loss of balance. He went to the hospital. There was a suspicion for a stroke. He received intravenous tissue plasminogen activator, intubated and went to [facility] for an intra-arterial thrombectomy. 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 He was started on a heparin drip to transition to Coumadin, then was noted to have a change in mental status. 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 A stat CT was done demonstrating a pontine hemorrhage. His heparin was stopped immediately and he went back to the intensive care unit. It appears that following the hemorrhage the patient's hospital course was complicated by the development of methicillin-resistant Staphylococcus aureus pneumonia, trach placement, PEG placement and a left lower extremity deep venous thrombosis below the calf which demonstrated resolution with Dopplers as well as possible dysautonomia/storming. After this he was weaned off the ventilator and decannulated and transferred to [place]. He is followed with Dr. Maharaj in Neurology. At baseline it appears that he does have diplopia with dysconjugate gaze and he is unable to laterally gaze with the left eye. He does have minimal left facial droop. He was last seen by Dr. Maharaj in 2016. To clarify the hemorrhagic conversion that occurred on the heparin drip occurred one week after the stroke. She does note that he continues to have significant deficits with balance, dysarthria and a six nerve palsy and does use a walker although he is occasionally able to walk on his own. He undergoes physical therapy twice weekly and exercises daily at home. He does have diplopia and constant nystagmus. He also has bilateral diminished hearing and tinnitus most prominent on the left side. He does also have moderate dysarthria and generalized spasticity. She also notes significant right-sided dysmetria on [id number] with mild dysmetria on the left. She did refer him to audiology for further workup. He has been taking aspirin 81 mg daily. Here he did receive an MRI of the cervical spine which I reviewed which demonstrated multilevel degenerative disk disease, mild to moderate central canal stenosis at C5 through C6 with mild foraminal stenosis at several levels. However, he denies any symptoms suggestive of radiculopathy. MEDICATIONS: His other home medications include ascorbic acid, atorvastatin 40, vitamin D, citalopram, vitamin B12, DHEA, lisinopril and multivitamin. PAST SURGICAL HISTORY: Status post tracheotomy, status post PEG placement - both of which have since been removed. FAMILY HISTORY: There is a family history of a grandfather with a history of intracranial stenosis and related strokes. No tobacco, alcohol, or drugs. Lives with his mother. I did review his CTA angiogram which demonstrated an occluded intracranial portion of the right vertebral artery. Flow is seen within the remainder of the more proximal right vertebral artery up to the level of the skull base. However the amount of flow is diminutive which does resist suspicion for chronic dissection. There are sclerotic changes involving the cavernous portions of the bilateral internal carotid arteries, is more than expected for the patient's age. Otherwise the vessels within the anterior circulation are patent and within normal limits. No occlusions aneurysms or high-grade narrowing is evidenced involving the anterior circulation vessels. No significant atherosclerotic changes involving the cervical portions of the carotid arteries. There is encephalomalacia involving the posterior fossa and the anterior right frontal lobe which appears stable. There is no acute intracranial hemorrhage or enhancing lesions noted. The MRI of the brain demonstrated overall no interval change when compared to the last MRI of the brain of November 04, 2014 performed at this institution with multifocal encephalomalacia as above. No acute ischemia. History is obtained from the patient and his mother who is at the bedside. There is no reported history of seizure. The patient reports that he feels back to baseline presently. LABORATORY STUDIES: WBC 11.9, hemoglobin 14.7, hematocrit 42.1 and platelets of 222. Sodium 138, potassium 4.4. Chloride was 101, bicarb 23, BUN was 15, creatinine 0.65 and glucose of 89. I reviewed the rest of his labs in detail which can be found in the chart. Triglycerides were elevated at 208. Cholesterol level was 140, LDL cholesterol 63.4, HDL cholesterol 35. EKG demonstrated a rate of 78, normal rate and normal sinus rhythm. He also had a CT of his head performed demonstrating no acute intracranial abnormality. No intracranial hemorrhage. Chronic right frontal pontine and cerebellar infarcts are unchanged. PHYSICAL EXAMINATION: Temperature 37.4, pulse of 74, respiratory rate of 18, blood pressure 145/83, pulse oximetry 97% on room air. General: He is a well-developed, well-nourished man in no acute distress. Head: Normocephalic, atraumatic. Neck is supple. No carotid bruits were auscultated. No vertebral bruits were noted either. Chest: Clear to auscultation. Heart: Regular rate and rhythm. Abdomen: Soft, nondistended, nontender. Extremities: No cyanosis, clubbing, or edema. NEUROLOGIC EXAMINATION: Mental status: He is awake, alert, oriented x3. Speech is moderately dysarthric, but 100% intelligible. No aphasia. Cranial nerves: Pupils are equal, round, reactive to light. Extraocular movements are dysconjugate with a left cranial nerve 6 palsy noted, abducens palsy. There also appeared to be flattening of the left nasolabial fold. Facial sensation was intact to light touch and temperature. Auditory sensation was intact to finger rub. Palatal elevation was symmetrical. Tongue was midline. Sternocleidomastoids and trapezii are 5/5 bilaterally. Motor: Muscle strength 5/5 throughout. Slightly increased tone throughout. Sensation: Intact to light touch and temperature throughout. Coordination: [id number] was performed slow and deliberately with evidence of mild intention tremor bilaterally. Deep tendon reflexes appear to be diminished throughout. Plantars were equivocal bilaterally. Gait was deferred. IMPRESSION: My suspicion is that he did have a transient ischemic attack with transient right upper and lower extremity numbness and weakness which has now, according to him, completely resolved. I did review all the imaging studies so far performed. My concern is that, although the right vertebral artery does appear occluded, there is a concern for possible chronic dissection. RECOMMENDATIONS: In light of this, I do recommend dual antiplatelet therapy with aspirin 81 mg daily and Plavix 75 mg daily for three months followed by reevaluation at three months. I do recommend that he follow up with Dr. Maharaj and the [facility] in an expeditious manner. I do also recommend that he follow up with his primary care provider within 1-2 weeks. We reviewed in detail potential risks versus benefits, associated with dual antiplatelet therapy for three months. We did review the differential diagnosis for his symptoms in detail. Reviewed the risk of increased bleeding and bruising associated with dual antiplatelet therapy. I did also review his echocardiogram which demonstrated that both atria are normal in size. The injection of contrast documented and intraarterial [id number] shunt that is probably small in size. Color Doppler, on the other hand, did not show any evidence of a [id number]-[id number] shunt. Left ventricular wall thickness is borderline increased. The ejection fraction is estimated to be 50-55%. There are no focal wall motion abnormalities noted. The right ventricle is normal in size, thickness and function. There is no significant valvular heart disease. The aortic root is normal in size. He would also benefit from continued optimization of control of stroke risk factors and risk factors leading to the development of intracranial and extracranial atherosclerotic plaques. It does appear that he has an increased amount of atherosclerosis intracranially for his age and, in light of this, he would benefit from continued optimization of control of potential stroke risk factors such as hypertension and hyperlipidemia. He reports that he does not smoke and he has lost significant weight following the Lap-Band surgery. I reviewed this in detail with him and his mother. Questions were sought and answered. The patient expressed understanding. Patient education was provided. Fifty percent of this 60-minute visit was devoted to counseling regarding diagnosis and treatment. Thank you, again, Dr. Saavedra, for allowing me to participate in care of your patient. Please feel free to contact me with any questions or concerns. There have been multiple studies comparing anticoagulation versus dual antiplatelet therapy in the treatment of dissections. These studies have suggested that both therapies are equally efficacious.
[2016-12-24 04:52] VITALS: BP 117/68; PULSE 74; RESP 18; O2SAT 98
[2016-12-24 06:07] VITALS: PULSE 69
[2016-12-24] MEDS ORDERED: CLOP75TA3 PO (07:28)
--- NOTE | 2016-12-24 07:36 | PCM.DC.MED ---
Discharge Summary Date of Service Dec 24, 2016 Dates of Hospitalization Date of Hospital Admission Dec 22, 2016 at 21:08 Date of Discharge: Dec 24, 2016 Providers: Admitting Physician: Gabe Topete MD Primary Care Physician: Elizabeth Arevalo MD Attending Physician: Margarita Saavedra MD Diagnosis at Time of Discharge Diagnosis at Time of Discharge Possible TIA with right-sided numbness and weakness Consultations Neurology Procedures XRay, CTs & MRIs PROCEDURE: MRI BRAIN WITHOUT CONTRAST ([id number]) INDICATIONS: Right sided deficits,history of hemmorage TECHNIQUE: Noncontrast axial T1 spin echo, axial T2 fast spin echo, sagittal and axial FLAIR, coronal T2 fast spin echo, axial gradient echo, axial diffusion and ADC through the brain. COMPARISON: [facility], MR, BRAIN W/O CONTRAST, 11/04/2014, 15:03. FINDINGS: Image quality: Excellent. CSF Spaces: Basal cisterns are patent. No extra-axial fluid collections. Ventricles are normal in size and shape. Brain: No intracranial masses or hemorrhage. Chronic sequela of posterior fossa infarct and right cerebellar hemisphere encephalomalacia appears unchanged. There is also chronic right frontal encephalomalacia Manley/white matter interface is normal. Brainstem appears normal. Diffusion-weighted images demonstrate no acute ischemic insult. There is artifactual increased signal on DWI image 71 series 2 in the right frontal lobe. No chronic ischemic insults. Normal intravascular flow voids are present. Skull and face: Calvarium has normal marrow signal. Orbits appear normal. Sinuses: Sinuses and mastoids are clear. IMPRESSION: Overall, no interval change since 11/04/14 with multifocal encephalomalacia as above. No acute ischemia Dictated by: Adiel Christie M.D. on 12/22/2016 at 19:13 Approved by: Adiel Christie M.D. on 12/22/2016 at 19:22 PROCEDURE: CT ANGIO HEAD AND NECK (P) INDICATIONS: RIGHT SIDE NUMBNESS TECHNIQUE: Pre-contrast 4.5 mm thick sections acquired from the foramen magnum to the vertex. After the administration of intravenous contrast, 1 mm thick sections acquired from the aortic arch through the [place] of [place]. Post-contrast 4.5 mm thick sections then re-acquired from the foramen magnum to the vertex. 3- dimensional [id number]-dvygcsirzx (MIP) and/or volume rendering reformats were acquired of the central intracranial vasculature and neck separately. For radiation dose reduction, the following was used: automated exposure control, adjustment of mA and/or kV according to patient size. COMPARISON: [facility], MR, BRAIN W/O CONTRAST, 11/04/2014, 15:03. FINDINGS: Image quality: Diagnostic. BRAIN: Brain: There is no acute intra-axial or extra-axial hemorrhage. No extra-axial fluid collection is identified. There is no midline shift or mass effect. The orbits are grossly unremarkable. Extensive encephalomalacia involving the right cerebellar hemisphere is present. There is a moderate-sized area of low attenuation noted involving the right tamara, similar to previous exams. Additionally, there is an area of encephalomalacia involving anterior right frontal lobe. No new areas of abnormal decreased signal are evident within the brain. No suspicious enhancement or abnormal enhancement within the brain is evident. The ventricles and cortical sulci are age-appropriate. Bones: Calvarium and visualized facial bones are grossly intact. The imaged paranasal sinuses and mastoid air cells are clear. HEAD CT ANGIOGRAPHY: Anterior circulation: Intracranial internal carotid arteries are normal in size and flow. However, and extensive atherosclerotic calcifications are noted , which are more than expected for the patient's age involving the cavernous segments of the bilateral internal carotid arteries. The flow within the paired anterior cerebral arteries is normal and symmetric. The flow within the middle cerebral arteries is normal and symmetric. The anterior communicating artery is seen. No aneurysms are seen. Posterior circulation: The right vertebral artery is completely occluded. Diminutive flow is present more inferiorly, which does not extend into the intracranial portion. The left vertebral artery also is noted to be very small in size, but is patent and does fill the basilar artery. Flow within the posterior cerebral arteries is normal and symmetric. No aneurysms are seen. Bilateral posterior to indicating arteries are present. NECK CT ANGIOGRAPHY: Carotid system: The great vessels demonstrate a conventional anatomy as they arise from the aortic arch. The origins of the common carotid arteries appear patent. The common carotid arteries demonstrate normal caliber and courses. The bifurcation regions are both widely patent. The internal carotid arteries demonstrate normal calibers and courses. Posterior circulation: The origins of the vertebral arteries both appear widely patent. Both vertebral arteries are noted to be small in size. The distalmost aspect of the right vertebral artery is occluded within the intracranial portion. The more superior extracranial portions of both vertebral arteries also demonstrate normal courses and calibers. They join to form a normal appearing basilar artery. Soft tissues: Visualized neck soft tissues demonstrate no suspicious abnormalities. Bones: No suspicious bony lesions. Visualized cervical spine appears normally aligned. Multifocal degenerative changes of the cervical spine are age- appropriate. IMPRESSION: 1. 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 Flow is seen within the remainder of the more proximal right vertebral artery up to the level of the skull base; however, the amount of flow is diminutive, which does raise the suspicion for chronic dissection. 2. Atherosclerotic changes involving the cavernous portions of the bilateral internal carotid arteries is more than expected for the patient's age. Otherwise, the vessels within the anterior circulation are patent and within normal limits. No occlusions, aneurysms, or high-grade narrowing is evident involving the anterior circulation vessels. 3. No significant atherosclerotic changes involving the cervical portions of the carotid arteries. 4. Encephalomalacia involving the posterior fossa and anterior right frontal lobe is similar to previous exams. There is no acute intracranial hemorrhage or enhancing lesion. Dictated by: Ag Martinez M.D. on 12/22/2016 at 16:01 Approved by: Ag Martinez M.D. on 12/22/2016 at 16:12 PROCEDURE: CT BRAIN WITHOUT CONTRAST ([id number]) INDICATIONS: rt sided numbness, hx cva TECHNIQUE: Noncontrast 4.5 mm thick angled axial sections acquired from the foramen magnum to the vertex, with coronal reformats. COMPARISON: [facility], CT, BRAIN W/O CONTRAST, 11/04/2014, 12:10. [facility], CT, BRAIN W/O CONTRAST, 08/29/2012, 14:42. FINDINGS: Image quality: Excellent. CSF spaces: Basal cisterns are patent. No change in chronic right cerebellar and pontine infarcts. No change in small right anteromedial frontal infarct. No extra-axial fluid collections. Ventricles are normal in size and shape. Brain: No midline shift. No intracranial masses or hemorrhage. Manley-white matter interface is normal. Skull and face: Calvarium and visualized facial bones are intact, without suspicious lesions. Sinuses: Visualized sinuses and mastoids are clear. IMPRESSION: 1. No acute intracranial abnormality. No intracranial hemorrhage. 2. Chronic right frontal, pontine, and cerebellar infarcts are unchanged. PROCEDURE: MRI CERVICAL SPINE WITHOUT CONTRAST ([id number]) INDICATIONS: right sided numbness TECHNIQUE: Noncontrast sagittal T1 spin echo and T2 fast spin echo, sagittal STIR, foraminal oblique sagittal T2 fast spin echo, and axial gradient echo or T2 fast spin echo through the cervical spine. COMPARISON: None. FINDINGS: Image quality: Excellent. Alignment and Curvature: There is normal bony alignment. Bone Marrow: Increased T2 signal in the anterior C4 and C5 likely reactive marrow edema. Spinal Cord: Visualized spinal cord has normal size and signal. No cerebellar tonsillar herniation. Paraspinous Soft Tissues: No paravertebral masses. Prevertebral soft tissues are normal in thickness. C2-C3: Normal appearance. C3-C4: Mild disc desiccation with mild posterior disc bulge. Mild uncovertebral hypertrophy bilaterally. The central canal is patent. Mild bilateral foraminal stenosis. C4-C5: Mild disc desiccation with mild posterior disc bulge. Mild uncovertebral hypertrophy bilaterally. The central canal is patent. Mild bilateral foraminal stenosis. C5-C6: Preserved disc height and mild disc desiccation. There is broad posterior disc bulge. Mild uncovertebral hypertrophy. The central canal is mild to moderately narrowed. Mild bilateral foraminal stenosis. C6-C7: Normal appearance. C7-T1: Normal appearance. IMPRESSION: 1. Multilevel degenerative disc disease in cervical spine as described. 2. Mild to moderate central canal stenosis at C5-C6. 3. Mild foraminal stenosis at several levels as described. Cardiac Echo Impression Echocardiogram Report Name: VERONICA LE Date: 12/23/2016 Height: 69 in Hospital Exam Location: [facility] Weight: 223 lb Gender: Male BSA: 2.2 m2 : 1975 Age: 41 yrs BP: 129/74 mmHg Reason For Study: BUBBLE STUDY Ordering Physician: Jamison CraftPerformed By: Matthew Sykes Referring Physician: RICKEY HUFF Interpretation Summary Both atria are normal in size. Injection of contrast documented an interatrial right to left shunt that is probably small in size. Color Doppler on the other hand, did not show any evidence of a left to right shunt. Left ventricular wall thickness is borderline increased. The ejection fraction is estimated to be 50-55%. There are no focal wall motion abnormalities. The right ventricle is normal in size, thickness and function. There is no significant valvular heart disease. The aortic root is normal size. Brief History Mr. 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 He was emergently transferred to [facility] for further evaluation. Prompt consultation was made with [place] neurology, Dr. Ty, who recommended imaging and treatment with aspirin, with anticoagulation considered if symptoms progress . Dr. Schafer of [facility] neurology was also contacted, who agreed with recommendations provided by [place] and decision for admission and consultation. Initial imaging included CT brain without contrast which did not reveal any acute intracranial abnormalities or hemorrhage and stable chronic right frontal, pontine, and cerebellar infarcts; CT angiogram of head and neck revealed occluded intracranial portion of the right vertebral artery which may be indicative of chronic dissection, anterior circulation vessels did not yield any evidence of occlusions, aneurysms, or high-grade narrowing, there were no significant atherosclerotic changes of the cervical portions of the carotids, and encephalomalacia of the posterior fossa and right frontal lobe is noted to be similar compared to previous examinations without any evidence of acute intracranial hemorrhage or enhancing lesions; MRI brain without contrast did not reveal any interval changes since 2014 with multifocal encephalomalacia and no evidence of extracranial masses or hemorrhages, and it was again noted that the chronic sequela posterior fossa infarct right cerebellar hemisphere encephalomalacia appeared unchanged. Patient was admitted for further evaluation and treatment of suspected CVA, with a complex history of hemorrhagic conversion, with neurology to consult. - Hospital day 1 Patient states that symptoms began evening prior to admission, approximately 5 PM 12/21/2016, with symptoms reported as right sided upper and lower extremity weakness and decreased sensitivity, with associated fatigue. He also notes some recent episodes of loose stools, but denies any ongoing bowel symptoms or blood noticed. He does not note any increase of symptoms for his residual effects from his previous CVA, and denies any increased blurred vision, nausea, vomiting, abdominal pain, changes of the left side, slurred speech above baseline, or gait imbalance poorer than baseline. He was seen by urgent care prior to transfer to the emergency department. Patient notes that the findings of his right upper and lower extremity are unusual, and prior to yesterday, he was not experiencing any numbness, decreased sensitivity, or weakness. He does state compliance with physical therapy and home exercise regimens, and questions whether his symptoms are secondary to a peripheral neurological deficit rather than central. Patient denies any sequelae of seizure activity since episodes of CVA hemorrhagic conversion In the ED, stat imaging was obtained as noted above, in addition initial vitals included T 36.7, p63, respiratory 22, blood pressure 162/79, 96% on room air; labs included white count 11.9 with no shift, hemoglobin 14.7, platelets 222, electrolytes within range; LFTs within range, troponin negative. UA ordered. Patient transported to medical floor in stable condition Hospital Course Mr. 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 He was emergently transferred to [facility] for further evaluation. Prompt consultation was made with [place] neurology, Dr. Ty, who recommended imaging and treatment with aspirin, with anticoagulation considered if symptoms progress . Dr. Schafer of [facility] neurology was also contacted, who agreed with recommendations provided by [place] and decision for admission and consultation. Initial imaging included CT brain without contrast which did not reveal any acute intracranial abnormalities or hemorrhage and stable chronic right frontal, pontine, and cerebellar infarcts; CT angiogram of head and neck revealed occluded intracranial portion of the right vertebral artery which may be indicative of chronic dissection, anterior circulation vessels did not yield any evidence of occlusions, aneurysms, or high-grade narrowing, there were no significant atherosclerotic changes of the cervical portions of the carotids, and encephalomalacia of the posterior fossa and right frontal lobe is noted to be similar compared to previous examinations without any evidence of acute intracranial hemorrhage or enhancing lesions; MRI brain without contrast did not reveal any interval changes since 2014 with multifocal encephalomalacia and no evidence of extracranial masses or hemorrhages, and it was again noted that the chronic sequela posterior fossa infarct right cerebellar hemisphere encephalomalacia appeared unchanged. Patient was admitted for further evaluation and treatment of suspected CVA, with a complex history of hemorrhagic conversion, with neurology to consult. - Hospital day 2 Suspected CVA with right sided upper and lower extremity weakness, acute, present on admission, ongoing - Sx onset > - Stat imaging on admit: - CT brain, CTA head/neck, brain MRI none of which showed any acute abnormalities. See results as documented above. - No acute changes noted; no noted evidence of bone misalignment, chronic age -appropriate changes noted - Sx already present approx 24 hours at time of scans - Swallow study at bedside, with ongoing speech therapy which was passed - PT/OT evaluation and ongoing sessions - Echo with bubble study which did not show any acute abnormalities - Neuro checks q4h + HOB 30deg, no further symptoms while in the hospital - Lipid panel: Total cholesterol 140, LDL 63, HDL 35, triglycerides 208 - Continue to investigate for other possible etiologies - No recent viral illnesses noted or reported to suspect other etiologies, such as GBS - Repeat coag studies and thyroid, records from [facility] not easily accessible - Neurology consultation order placed; Dr. Schafer was contacted by ED team and awaiting consultation - We will continue home medications at this time once verified and reconciliation was completed: ASA, statin -No acute findings were seen on initial evaluation with imaging studies. -We will proceed with checking MRI of C-spine as this may possibly show some abnormalities as etiology of right sided weakness and numbness. -MRI of C-spine did show some mild to moderate spinal canal stenosis at the level of C5-C6. However symptoms were not in this distribution. -Appreciate neurology consultation and will discharge patient to home December 24 on dual antiplatelet agents, aspirin and Plavix -Patient is to follow-up with his primary care provider in one week and with [place] neurology in 2-3 weeks. 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 Maharaj following yearly - Continue home meds when med rec completed and meds verified as noted above - Restart hypertensive meds at 24h post onset Leukocytosis, likely acute, present on admission, monitor - On admit: WBC 11.9 - Likely stress reaction - No s/sx infection at this time; -Resolved REEMA on CPAP, chronic, presumed stable - Have pt bring in machine - Monitor History of LLE DVT, presumed stable - No additional anticoagulation at this time at the recommendations of [place], unless neuro sx progress - SCDs only at this time Hypertension, chronic, presumed stable - Patient denied any history of hypertension at time of admission, although records indicate previous diagnosis - Monitor -Recommend continued outpatient follow-up to make sure that blood pressure is adequately controlled PRN fever, bowel, nausea, pain DVT: SCDs only at this time Diet: Heart healthy after completion of swallow study, with ongoing speech therapy GI: H2B IVF: NS100 Code: FULL CODE Patient status: Patient is admitted under inpatient status with expected length of stay greater than 2 midnights due to severity of presenting symptoms, risk of adverse event, and complexity of treatment plan. Exam Vital Signs (Last) Date Time Temp Pulse Resp B/P Pulse Ox O2 Delivery O2 Flow Rate FiO2 12/24/16 06:07 69 12/24/16 04:52 36.2 18 117/68 98 Room Air Exam Constitutional: Young male in no acute distress Head: Normocephalic atraumatic Chest: Clear to auscultation Cor: Regular rate and rhythm S1-S2 Abdomen: Soft nontender bowel sounds present Extremities: No pedal edema Skin: No rashes Psych: Mood and affect are appropriate Neuro: Alert and oriented 3, have speech dysarthria with left-sided weakness Test 12/22/16 00:35 12/22/16 15:30 12/22/16 17:50 12/22/16 20:23 Hemoglobin A1c 5.3% (4.8-5.6) Total Bilirubin 0.4mg/dL (0.0-1.2) Aspartate Amino Transf (AST/SGOT) 21U/L (0-50) Alanine Aminotransferase (ALT/SGPT) 16U/L (0-44) Alkaline Phosphatase 76U/L (25-150) Troponin T < 0.010ug/L (0.0-0.011) Total Protein 7.1g/dL (6.4-8.4) Albumin 4.1g/dL (3.4-5.0) Urine Color Yellow (YELLOW) Urine Appearance Clear (CLEAR,HAZY) Urine pH 7.0 (5.0-8.0) Urine Specific [place] 1.010 (1.003-1.035) Urine Protein Negativemg/dL (NEG,TRACE) Urine Glucose (UA) Negativemg/dL (NEGATIVE) Urine Ketones Negativemg/dL (NEGATIVE) Urine Occult Blood Negative (NEGATIVE) Urine Nitrite Negative (NEGATIVE) Urine Bilirubin Negative (NEGATIVE) Urine Urobilinogen Normalmg/dL (NORMAL) Urine Leukocyte Esterase Negative (NEGATIVE) Urine RBC 0-2/hpf (0-2) Urine WBC 0-5/hpf (0-5) Urine Epithelial Cells None/hpf (NONE-MOD) Urine Crystals None seen (NONE SEEN) Urine Bacteria None/hpf (NONE-FEW) Urine Hyaline Casts None/lpf (NONE) Urine Granular Casts None seen (NONE SEEN) Urine Waxy Casts None seen (NONE SEEN) Urine Red Blood Cell Casts None seen (NONE SEEN) Urine White Blood Cell Casts None seen (NONE SEEN) Urine Mucus None seen (None Seen) Urine Trichomonas None seen (NONE SEEN) Urine Yeast None (NONE SEEN) Urinalysis Comment None Urine Culture Reflexed Not indicated Hold Urine Received (Received) Triglycerides Level 208mg/dL (0-149) Cholesterol Level 140mg/dL (100-199) LDL Cholesterol, Calculated 63.400mg/dL (0-99) VLDL Cholesterol 41.600mg/dL HDL Cholesterol 35mg/dL (>39) Cholesterol/HDL Ratio 4.00 (0.0-4.4) Test 12/23/16 05:20 White Blood Count 6.7th/mm3 (3.8-10.1) Red Blood Count 4.40mil/mm3 (4.40-5.80) Hemoglobin 13.9g/dL (13.8-17.2) Hematocrit 40.4% (41.0-50.0) Mean Corpuscular Volume 91.8fL (81-100) Mean Corpuscular Hemoglobin 31.6pg (27.0-35.0) Mean Corpuscular Hemoglobin Concent 34.4% (32.0-37.0) Red Cell Distribution Width 12.9% (12.3-15.4) Platelet Count 189bil/L (150-400) Neutrophils (%) (Auto) 49.3% (40-74) Lymphocytes (%) (Auto) 29.4% (14-46) Monocytes (%) (Auto) 14.8% (4-12) Eosinophils (%) (Auto) 6.1% (0-5) Basophils (%) (Auto) 0.1% (0-3) Erythrocyte Sedimentation Rate 4mm/hr (0-15) Prothrombin Time 10.7sec (8.1-12.5) Prothromb Time International Ratio 1.00ratio Activated Partial Thromboplast Time 26.8sec (22.8-33.0) Sodium Level 140mEq/L (134-144) Potassium Level 4.4mEq/L (3.5-5.2) Chloride Level 104mEq/L (97-108) Carbon Dioxide Level 23mmol/L (18-29) Blood Urea Nitrogen 13mg/dL (6-24) Creatinine 0.63mg/dL (0.76-1.27) Estimat Glomerular Filtration Rate 148mL/min (>59) Glucose Level 94mg/dL (60-99) Calcium Level 8.9mg/dL (8.5-10.1) Vitamin D 25-Hydroxy 37.7ng/mL (30.0-100.0) Thyroid Stimulating Hormone (TSH) 2.810uIU/mL (0.450-4.500) Free Thyroxine 0.94ng/dL (0.82-1.77) Discharge Medications Discharge Medications Ascorbic Acid (Vitamin C) 250 Mg Tab.chew 1,000 MG PO QAM (Reported) Aspirin Chew (Aspirin Chew) 81 Mg Chew 81 MG PO QAM (Reported) Atorvastatin (Lipitor) 40 Mg Tablet 40 MG PO HS (Reported) Cholecalciferol (Vitamin D3) (Vitamin D3) 2,000 Unit Tablet 2,000 UNIT PO QAM ( Reported) Citalopram (Citalopram) 40 Mg Tablet 40 MG PO QAM (Reported) Clopidogrel Bisulfate (Plavix) 75 Mg Tablet 75 MG PO DAILY Prescribed by: MARGARITA SAAVEDRA MD Cyanocobalamin (Vitamin B12) 500 Mcg Tablet 1,000 MCG PO QAM (Reported) Docosahexanoic Acid (Dha) 100 Mg Capsule 100 MG PO QAM (Reported) Lisinopril (Lisinopril) 10 Mg Tablet 10 MG PO HS (Reported) Multivit with Calcium,Iron,Min (Multivitamins E-Uryvqyl-Gazg) 1 Each Tablet 1 EACH PO QAM (Reported) Followup Plan Disposition: Home Discharge Diet: Heart Healthy Discharge Activity: Other (progress as tolerated) Follow-up Provider: Elizabeth Arevalo MD Follow-up with PCP in: 1 week Provider: [facility] Follow-up in: 2 weeks ([place] neurology) Time spent 45 minutes copies to: Elizabeth Arevalo MD; [facility] neurology Margarita Saavedra MD Dec 24, 2016 07:36
[2016-12-24 08:54] VITALS: PULSE 74
[2016-12-24 09:09] VITALS: BP 130/59; PULSE 72; RESP 18; O2SAT 98
== END 2016-12-24 11:15 | disposition home or self-care (01) ==
LOC: SED 14:14 → MPC 21:08
PROVIDERS: ADMIT Hospitalist; ATTEND Specialist
DX: R53.1 Weakness (principal); I69.322 Dysarthria following cerebral infarction; I10 Essential (primary) hypertension; G47.33 Obstructive sleep apnea (adult) (pediatric); D72.829 Elevated white blood cell count, unspecified; Z86.718 Personal history of other venous thrombosis and embolism; Z98.84 Bariatric surgery status; Z79.82 Long term (current) use of aspirin; Z79.899 Other long term (current) drug therapy